=== PATIENT | male | born 1990 | race Caucasian/White ===

== ENCOUNTER 2018-03-18 22:58 | Emergency (ER) | payer SELFPAY ==
--- NOTE | 2018-03-18 23:14 | ER Report ---
History and Physical Time Seen By MD: 23:13 Hx. of Stated Complaint: PT STATES HIS LEFT HAND IS TINGLY, LEFT ELBOW IS NUMB, HAS PAIN IN LEFT CHEST, HAS HAD A RECENT EPISODE OF HYPOTENSION HPI/ROS CHIEF COMPLAINT: chest pain, tingling in left elbow and arm HISTORY OF PRESENT ILLNESS: This is a 28 year old male. He has some chest pain on the side of his chest on the left just below the axillae. Nothing changes this pain. Seems sharp. No shortness of breath. He is having some tingling and numbness in the elbow and down into forearm and wrist in the left arm. He was here at the hospital for labs, EKG, and xray earlier today, but did not know what the results were. He went to the doctor this morning because of having severe hypotension episode. He drank about a half gallon of water that prevented him from going into shock and then went to the doctor. Blood pressure was low. He has been drinking alot of water today and so has been urinating more. Normal bowels. No abdominal pain. No nausea or vomiting. Never had any health problems in the past. No dizziness at this time. No vision changes. No headache. Allergies: Coded Allergies: No Known Drug Allergies (Unverified , 03/18/18) Home Meds No Active Prescriptions or Reported Meds Reviewed Nurses Notes: Yes Hx Substance Use Disorder: No Hx Alcohol Use: No Constitutional Vital Sign - Last 24 Hours 03/18/18 03/18/18 03/18/18 03/18/18 22:58 23:02 23:05 23:13 Temp 99.0 Pulse ??? 66 69 Resp 12 B/P (MAP) 127/84 127/84 (98) Pulse Ox 95 97 O2 Delivery Room Air 03/18/18 03/18/18 03/18/18 03/18/18 23:28 23:30 23:43 23:58 Pulse ? B/P (MAP) 117/78 (91) 131/76 (94) Pulse Ox 96 100 03/19/18 03/19/18 03/19/18 03/19/18 00:13 00:30 00:33 00:48 Pulse 80 87 69 B/P (MAP) 116/81 (93) Pulse Ox 100 98 03/19/18 01:00 B/P (MAP) 117/76 (90) Physical Exam General Appearance: The patient is alert. No acute distress, but anxious. Eyes: Pupils are equal, round. Reactive to light. No pallor, injection or icterus. ENT: Mucous membranes are moist. Normal oral mucosa. Posterior oropharynx is normal. Neck: Supple and non tender. Respiratory: Lungs are clear to auscultation. Cardiovascular: Regular rate and rhythm. No murmurs, gallops or rubs. Normal capillary refill. Gastrointestinal: Abdomen is soft and non tender. Nondistended. Normal active bowel sounds. Neurological: Alert and oriented x3. No focal neurologic deficits. Can cause some shooting pain with percussion over wrist and over the elbow. Skin: Warm and dry. No rashes. Musculoskeletal: Not able to reproduce chest pain with palpation. Extremities are nontender. No tenderness in palpation of the cervical, thoracic and lumbar spine. DIFFERENTIAL DIAGNOSIS: After history and physical exam, differential diagnosis was considered for chest pain including but not limited to myocardial ischemia, pericarditis, pulmonary embolus, chest wall pain, pleural inflammation, pulmonary infectious causes, anxiety causes. Medical Decision Making Data Points Result Diagram: 03/19/18 0005 03/19/18 0005 Laboratory Hematology Test 03/19/18 00:05 Red Blood Count 5.85 M/uL (4.00-5.60) Mean Corpuscular Volume 89.2 fL (80.0-96.0) Mean Corpuscular Hemoglobin 31.5 pg (26.0-33.0) Mean Corpuscular Hemoglobin Concent 35.4 g/dL (32.0-36.0) Red Cell Distribution Width 12.2 % (11.5-14.5) Mean Platelet Volume 7.4 fL (7.2-11.1) Neutrophils (%) (Auto) 48.8 % (39.4-72.5) Lymphocytes (%) (Auto) 42.2 % (17.6-49.6) Monocytes (%) (Auto) 7.2 % (4.1-12.4) Eosinophils (%) (Auto) 0.8 % (0.4-6.7) Basophils (%) (Auto) 1.0 % (0.3-1.4) Nucleated RBC Relative Count (auto) 0.1 /100WBC Neutrophils # (Auto) 4.9 K/uL (2.0-7.4) Lymphocytes # (Auto) 4.3 K/uL (1.3-3.6) Monocytes # (Auto) 0.7 K/uL (0.3-1.0) Eosinophils # (Auto) 0.1 K/uL (0.0-0.5) Basophils # (Auto) 0.1 K/uL (0.0-0.1) Nucleated RBC Absolute Count (auto) 0.01 K/uL D-Dimer Quantitative (PE/DVT) < 0.27 ug/ml (0-0.50) Sodium Level 140 mmol/L (137-145) Potassium Level 3.3 mmol/L (3.5-5.0) Chloride Level 102 mmol/L (98-107) Carbon Dioxide Level 24 mmol/L (22-30) Blood Urea Nitrogen 14 mg/dl (9-21) Creatinine 1.20 mg/dl (0.66-1.25) Glomerular Filtration Rate Calc > 60.0 Random Glucose 105 mg/dl (75-110) Calcium Level 10.7 mg/dl (8.4-10.2) Total Bilirubin 0.7 mg/dl (0.2-1.3) Aspartate Amino Transf (AST/SGOT) 23 U/L (0-35) Alanine Aminotransferase (ALT/SGPT) 25 U/L (0-56) Alkaline Phosphatase 72 U/L (0-126) Troponin I < 0.012 ng/ml Total Protein 8.2 gm/dl (6.3-8.2) Albumin 4.9 g/dl (3.5-5.0) Chemistry Test 03/19/18 00:05 White Blood Count 10.1 k/uL (4.5-11.0) Red Blood Count 5.85 M/uL (4.00-5.60) Hemoglobin 18.5 g/dL (14.0-18.0) Hematocrit 52.2 % (42.0-52.0) Mean Corpuscular Volume 89.2 fL (80.0-96.0) Mean Corpuscular Hemoglobin 31.5 pg (26.0-33.0) Mean Corpuscular Hemoglobin Concent 35.4 g/dL (32.0-36.0) Red Cell Distribution Width 12.2 % (11.5-14.5) Platelet Count 242 K/uL (150-450) Mean Platelet Volume 7.4 fL (7.2-11.1) Neutrophils (%) (Auto) 48.8 % (39.4-72.5) Lymphocytes (%) (Auto) 42.2 % (17.6-49.6) Monocytes (%) (Auto) 7.2 % (4.1-12.4) Eosinophils (%) (Auto) 0.8 % (0.4-6.7) Basophils (%) (Auto) 1.0 % (0.3-1.4) Nucleated RBC Relative Count (auto) 0.1 /100WBC Neutrophils # (Auto) 4.9 K/uL (2.0-7.4) Lymphocytes # (Auto) 4.3 K/uL (1.3-3.6) Monocytes # (Auto) 0.7 K/uL (0.3-1.0) Eosinophils # (Auto) 0.1 K/uL (0.0-0.5) Basophils # (Auto) 0.1 K/uL (0.0-0.1) Nucleated RBC Absolute Count (auto) 0.01 K/uL D-Dimer Quantitative (PE/DVT) < 0.27 ug/ml (0-0.50) Glomerular Filtration Rate Calc > 60.0 Calcium Level 10.7 mg/dl (8.4-10.2) Total Bilirubin 0.7 mg/dl (0.2-1.3) Aspartate Amino Transf (AST/SGOT) 23 U/L (0-35) Alanine Aminotransferase (ALT/SGPT) 25 U/L (0-56) Alkaline Phosphatase 72 U/L (0-126) Troponin I < 0.012 ng/ml Total Protein 8.2 gm/dl (6.3-8.2) Albumin 4.9 g/dl (3.5-5.0) Coagulation Test 03/19/18 00:05 D-Dimer Quantitative (PE/DVT) < 0.27 ug/ml EKG/Imaging EKG Interpretation 12 lead EKG: Rhythm: normal sinus rhythm, rate 69 [place]: normal QRS: normal ST segments: normal Imaging CHEST PA AND LATERAL 03/18/2018 11:31 PM. INDICATION: Chest pain. COMPARISON: Same-day radiographs. FINDINGS: Lungs are well-expanded. The lungs are clear. No pneumothorax or pleural effusion. Pulmonary vasculature is unremarkable. Heart size is normal. IMPRESSION: Normal, unchanged. Report Dictated By: Konstantin Mei MD at 03/19/2018 12:08 AM ED Course/Re-evaluation Clinical Indication for ER IV: Hydration, IV Access ED Course The patient is feeling better on reevaluation. He did not like the blood pressure cuff squeezing his arm as it did reproduce some of his paresthesias. Positive shouts sick sinus well with increased paresthesias. We discussed that this looks like it's likely inflammatory in nature and would follow up with primary care. His chest pain appears more pleuritic in nature or from the chest wall and inflammatory. Recommended follow-up with primary care in this regard as well. We talked about a slightly low potassium and recommended eating some foods with more potassium available. Discussed other follow-up testing that could be done with primary care including heart monitor, further testing for inflammatory processes or hormonal processes as well. This also could be related to stress. Decision to Disposition Date: March 19, 2018 Decision to Disposition Time: 01:00 Depart Departure Latest Vital Signs Vital Signs Date Time Temp Pulse Resp B/P (MAP) Pulse Ox O2 Delivery O2 Flow Rate FiO2 03/19/18 01:00 117/76 (90) 03/19/18 00:48 69 98 03/18/18 23:02 99.0 12 Room Air Impression: Primary Impression: Chest pain Additional Impression: Arm paresthesia, left Condition: Improved Disposition: HOME OR SELF-CARE New Scripts No Active Prescriptions or Reported Meds Patient Instructions: Chest Pain (ED), Paresthesia (ED) Additional Instructions: Follow-up with primary care and get established with a primary care provider. Consider follow-up with cardiology for heart monitor testing or stress testing. Increase intake of foods with potassium Problem Qualifiers Primary Impression: Chest pain Chest pain type: unspecified Qualified Codes: R07.9 - Chest pain, unspecified MERCED ASHER MD March 18, 2018 23:14
[2018-03-18] MEDS ORDERED: NS(*) 0.9% 1000 ML BAG 1,000 ML IV ONE (23:31)
[2018-03-18] MEDS ORDERED: ASPIRIN 81 MG CHEW PO ONE (23:35)
--- NOTE | 2018-03-18 23:52 | EKG ---
FACILITY: [facility] PATIENT NAME: DANIEL ANGULO : [id number] MR: [id number] V: [id number] EXAM DATE: ORDERING PHYSICIAN: MERCED ASHER TECHNOLOGIST: ALONSO Friedman Reason : CARDIAC Blood Pressure : / mmHG Vent. Rate : 069 BPM Atrial Rate : 069 BPM P-R Int : 136 ms QRS Dur : 088 ms QT Int : 390 ms P-R-T Axes : 069 088 047 degrees QTc Int : 417 ms Sinus rhythm Possible left atrial enlargement Nonspecific ST findings Artifact in a few leads - repeat if needed Confirmed by EVER MILLS ([id number]) on 03/19/2018 6:01:43 AM Referred By: Confirmed By:EVER MILLS
--- NOTE | 2018-03-19 00:13 | RADIOLOGY IMAGING REPORT ---
FACILITY: [facility] PATIENT NAME: Jakub Gunderson : 1990 MR: [id number] V: [id number] EXAM DATE: ORDERING PHYSICIAN: MERCED ASHER TECHNOLOGIST: Location: [facility] Patient: Jakub Gunderson : 1990 Visit/Account:[id number] Date of Sevice: 03/18/2018 CHEST PA AND LATERAL 03/18/2018 11:31 PM. INDICATION: Chest pain. COMPARISON: Same-day radiographs. FINDINGS: Lungs are well-expanded. The lungs are clear. No pneumothorax or pleural effusion. Pulmo nary vasculature is unremarkable. Heart size is normal. IMPRESSION: Normal, unchanged. Report Dictated By: Konstantin Mei MD at 03/19/2018 12:08 AM Report E-Signed By: Konstantin Mei MD at 03/19/2018 12:10 AM [id number]
[2018-03-19 00:15] LABS: PLATELET COUNT, AUTOMATED 242 K/uL (150-450)
[2018-03-19 01:00] VITALS: BP 117/76
== END 2018-03-19 01:17 | disposition home or self-care (01) ==
LOC: ER 23:28
DX: R07.9 Chest pain, unspecified (principal); R20.2 Paresthesia of skin
CPT/HCPCS: 71046; 84484; 85025; 85379; 93005; 96360; 99285; J7030; 82040; 82247; 82310; 82374; 82435; 82565; 82947; 84075; 84132; 84155; 84295; 84450; 84460; 84520

== ENCOUNTER → 2018-03-18 | Outpatient (CLI) | payer SELFPAY ==
--- NOTE | 2018-03-18 15:50 | EKG ---
FACILITY: [facility] PATIENT NAME: DANIEL ANGULO : [id number] MR: [id number] V: [id number] EXAM DATE: ORDERING PHYSICIAN: NICOLE MARSHALL TECHNOLOGIST: VEE Friedman Reason : HYOPTENSION Blood Pressure : / mmHG Vent. Rate : 064 BPM Atrial Rate : 064 BPM P-R Int : 136 ms QRS Dur : 092 ms QT Int : 380 ms P-R-T Axes : 066 089 031 degrees QTc Int : 392 ms Sinus arrhythmia Possible LVH Nonspecific ST-T findings Borderline ECG No previous ECGs available Confirmed by EVER MILLS ([id number]) on 03/18/2018 9:11:48 PM Referred By: VARSHA Confirmed By:EVER MILLS
[2018-03-18 16:01] LABS: PLATELET COUNT, AUTOMATED 231 K/uL (150-450)
--- NOTE | 2018-03-18 16:06 | RADIOLOGY IMAGING REPORT ---
FACILITY: [facility] [place] PATIENT NAME: Jakub Gunderson : 1990 MR: [id number] V: [id number] EXAM DATE: ORDERING PHYSICIAN: J LUIS MADDOX TECHNOLOGIST: Location: [facility] [place] Patient: Jakub Gunderson : 1990 Visit/Account:[id number] Date of Sevice: 03/18/2018 Chest 2 views: HISTORY: Shortness of breath, high heart rate, blood pressure out of normal, arm numbness. COMPARISON: None. FINDINGS: Frontal and lateral chest: Cardiomediastinal silhouette is within normal limits. There is n o infiltrate or pleural effusion. No pneumothorax. Pulmonary vasculature is normal. Osseous structures are within normal limits. IMPRESSION: No evidence of acute cardiopulmonary abnormality. Report Dictated By: Codi Mcdonald MD at 03/18/2018 3:58 PM Report E-Signed By: Codi Mcdonald MD at 03/18/2018 4:03 PM [id number]
== END ==
LOC: RAD 15:10
PROVIDERS: ATTEND Nurse Practitioner Family
DX: R06.02 Shortness of breath (principal); R00.0 Tachycardia, unspecified; I95.9 Hypotension, unspecified; R94.31 Abnormal electrocardiogram [ECG] [EKG]
CPT/HCPCS: 36415; 71046; 82040; 82247; 82310; 82374; 82435; 82565; 82947; 84075; 84132; 84155; 84295; 84443; 84450; 84460; 84484; 84520; 85025; 85379; 93005